=== PATIENT | male | born 1975 | race Caucasian/White ===

== ENCOUNTER 2023-07-18 09:40 | Emergency (ER) | payer OTHER, SELFPAY ==
[2023-07-18 09:46] VITALS: BP 131/82; PULSE 79; RESP 18; TEMP 36.8; O2SAT 100; BMI 25.9
--- NOTE | 2023-07-18 09:52 | ED_ITS ---
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
--- NOTE | 2023-07-18 09:57 | ED_ITS ---
HPI - Wound/Laceration General: Chief Complaint: Wound/Laceration Stated Complaint: face lac, hit head Time Seen by Provider: 07/18/23 09:48 Source: patient Mode of arrival: ambulatory Limitations: no limitations History of Present Illness: Patient is a 47-year-old male who presents to ED today with a main complaint of a laceration to his forehead. Patient states around 1 AM this morning he was chasing his dog that got out and accidentally ran into a barbed wire fence. Patient states he sustained lacerations to his extremities and face. He states he slipped and fell on the wet grass and has some mild neck and upper back pain that he feels most likely is just muscle strain. His last tetanus was approximately 3 years ago. He denies striking his head or LOC. Onset (ago): hour(s) Location: face, neck and back Place: home Patient tetanus UTD: Yes Context: accidental Associated symptoms: Reports no associated symptoms; Denies syncope Review of Systems Eyes: Denies: change in vision, blurry vision, photophobia, eye discharge, floaters or seeing flashes ENMT: Denies: throat pain, odynophagia, ear or mastoid pain, ear discharge, nasal discharge, epistaxis or sinus pain Card: Denies: chest pain, palpitations, lightheadedness, syncope or pre- syncope Resp: Denies: dyspnea or pain on inspiration GI: Denies: abdominal pain : Denies: flank pain or hematuria Musc: Reports: neck pain and back pain; Denies: extremity pain or joint pain Skin/Breast: Reports: other (forehead laceration) Neuro: Denies: headache(s), numbness in extremities, weakness in extremities, sensory changes or dizziness Physical Exam Const: COMMON NORMALS: no acute distress, average body habitus, patient oriented x3, no limitations, healthy appearing, alert and well nourished GENERAL APPEARANCE: cooperative ORIENTATION/CONSCIOUSNESS: Yes awake, Yes oriented to person, Yes oriented to place and Yes oriented to time HENMT: COMMON NORMALS: normocephalic, atraumatic, TM's normal bilaterally and Normal external nose present HEAD & SCALP: normal to inspection, normocephalic and atraumatic; no Espinoza's sign, no hematoma and no raccoon eyes FACE & SINUS: other (facial abrasions; flap laceration above L eyebrow) NOSE: Normal external nose present TYMPANIC MEMBRANE: TM's normal bilaterally MOUTH: other (no intraoral injuries noted) Eye: COMMON NORMALS: Equal, round and reactive pupils present and EOMs intact bilaterally GENERAL EYE: appearance normal, both eyes and all related structures and normal light reflex PUPIL: Yes Equal, round and reactive pupils present DIRECT OPHTHALMOSCOPY: Yes normal light reflex Neck/C-Spine: COMMON NORMALS: full ROM GENERAL: Yes normal visual inspection CERVICAL SPINE: Yes cervical ROM normal, Yes pain with cervical ROM, No Cervical spine tenderness, No step off deformity and Yes Paracervical muscle tenderness Chest: COMMONS NORMALS: normal inspection of the chest and normal palpation of entire chest wall Resp: COMMON NORMALS: normal respiratory effort and clear to auscultation bilaterally AUSCULTATION: clear to auscultation bilaterally Cardio: COMMON NORMALS: regular rate and regular rhythm RATE: regular rate RHYTHM: regular rhythm GI: COMMON NORMALS: Normal to inspection, nondistended, normoactive bowel sounds present, Soft to palpation, non-tender, No hepatosplenomegaly present and no masses INSPECTION: Yes normal to inspection and No abdominal wall ecchymos is AUSCULTATION: Yes normoactive bowel sounds PALPATION: Yes Soft to palpation and Yes No hepatosplenomegaly present Back/Pelvis: COMMON NORMALS: thoracic and lumbar spine normal to inspection and thoraco-lumbar ROM normal THORACIC SPINE/UPPER BACK: Yes thoracic ROM normal, Yes thoracic spinal tenderness (mid to upper T spine), Yes paraspinal muscle tenderness and No paraspinal muscle spasm LUMBAR SPINE/LOWER BACK: Yes normal to inspection, Yes lumbar ROM normal, No lumbar spinal tenderness, No paraspinal muscle tenderness and No paraspinal muscle spasm PELVIS: Yes buttocks normal SACROILIAC JOINTS: Yes SI joints normal SACRUM: no tenderness COCCYX: no tenderness Extremity: COMMON NORMALS: normal to inspection and full ROM NARRATIVE EXTREMITY EXAM: scattered minor abrasions anterior lower legs GENERAL: Yes normal exam except as noted Neuro: SARA COMA SCALE: document GCS findings [place] coma scale eye opening: Spontaneous [place] coma scale verbal response: Orientated Sara coma scale motor response: Obey commands [place] coma scale total score: 15 COMMON NORMALS: patient oriented x3, CN's II-XII intact bilaterally, moves all extremities, no focal motor deficits, no sensory deficits noted and gait normal SENSORIUM/ORIENTATION: Yes alert, Yes oriented to person, Yes oriented to place and Yes oriented to time SPEECH: speech normal GAIT: Yes Normal gait present Skin: COMMON NORMALS: no rashes or lesions noted GENERAL SKIN EXAM: no rashes or lesions noted TRAUMA: abrasion and laceration Procedures Laceration Laceration 1: Site: face Side (If applicable): left Size (cm): 1.5 Description: flap Depth: simple, single layer and involves muscle layer Local Anesthetic: lidocaine 1% and with epi Amount of anesthesia used (mL): 3.0 Pre-repair: wound explored and irrigated extensively Skin layer closed with: nylon Size (cm): 4-0 Number of sutures: 5 Technique: simple, interrupted Course Vital Signs: Vital signs: Vital Signs Temperature 98.3 F 07/18/23 09:46 Pulse Rate 73 07/18/23 10:31 Respiratory Rate 18 07/18/23 09:46 Blood Pressure 143/96 07/18/23 10:31 Pulse Oximetry 100 07/18/23 10:31 Oxygen Delivery Me thod Room Air 07/18/23 10:31 MDM - Wound/Laceration Medical Decision Making Wound to forehead was copiously irrigated and repaired as documented. Wound/infection precautions discussed. His tetanus is up-to-date. XRs showing a T5 compression fracture. He will follow-up with Dr. Jackson for this. Discussed restrictions at home. He will be provided pain medications. Return to ED precautions given. Lab Data Radiology Impressions Cervical Spine X-Ray 07/18/23 10:02 Impression: 1. Degenerative change at C5-C6 with accompanying disc narrowing. 2. Negative for cervical compression fracture. Thoracic Spine X-Ray 07/18/23 10:02 Impression: T5 compression fracture. All radiology interpretation(s) finalized by discharge Discharge Plan Discharge Patient Disposition: Home Clinical Impression: Forehead laceration, Compression fracture of T5 vertebra Condition: Stable Prescriptions: New hydrocodone-acetaminophen 5-325 mg tablet 1 tab PO Q6H PRN (Reason: pain) Qty: 14 0RF Discharge Orders: Discharge ED (Routine); Ordered 07/18/23 Ordered By: Hellen Trotter Referrals: Wilner Merritt MD [Primary Care Provider] - Patient Instructions: Fractures - Compression, Care For Your Stitches (ED), Laceration (DC), Vertebral Compression Fracture (ED), Opioid Safety, Pain Management Activity Restrictions/Additional Instructions: Keep wound/laceration clean with warm soap and water twice daily. Monitor for signs of infection such as redness, swelling, increased pain, or drainage. Please seek medical re-evaluation if these occur. If you received sutures today these will need to be removed (unless you were told by the provider that they are absorbable). The provider should have discussed with you the length of time until removal-7 DAYS. As we discussed I would like you to limit lifting to 15 pounds and avoid twisting/bending/turning as to not aggravate the compression fracture in your back. We will have you follow-up with her orthopedic spinal specialist, Dr. Jackson. You may use prescribed pain medication as needed for severe pain. 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
--- NOTE | 2023-07-18 10:02 | XR_ITS ---
WS: [id number] Cervical spine, 3 views, 07/18/2023 Clinical Data: fall Comparison: None. Findings: No compression fractures are seen. There is disc space narrowing at C5-C6 and C6-C7 with an terior osteophytes. There is no prevertebral soft tissue swelling. The odontoid is unremarkable. The soft tissues of the neck and the lung apices are normal. XR/XR cervical spine 3V* [id number] Impression: 1. Degenerative change at C5-C6 with accompanying disc narrowing. 2. Negative for cervical compression fracture.
--- NOTE | 2023-07-18 10:02 | XR_ITS ---
WS: [id number] Thoracic spine, 3 views, 07/18/2023 Clinical Data: fall Comparison: None. Findings: There is a compression fracture of the T5 vertebral body with loss of at least 50% of the anterior an d central vertebral body height. No retropulsion is seen. The disc heights are normal. The paravertebral regions are unremarkable. XR/XR thoracic spine 3V* [id number] Impression: T5 compression fracture.
[2023-07-18 10:31] VITALS: BP 143/96; PULSE 73; O2SAT 100
[2023-07-18 11:15] VITALS: BP 128/85; PULSE 78; O2SAT 100
--- NOTE | 2023-07-21 06:05 | DCPLANNER ---
Message sent to ortho for follow T5 COMPRESSION FX DR. GONSALVES
== END 2023-07-18 11:15 | disposition home or self-care (01) ==
PROVIDERS: Emergency Provider Physician Assistant; PCP Family Medicine
DX: S01.81XA Laceration without foreign body of other part of head, initial encounter (principal); S22.059A Unspecified fracture of T5-T6 vertebra, initial encounter for closed fracture; W01.0XXA Fall on same level from slipping, tripping and stumbling without subsequent striking against object, initial encounter
CPT/HCPCS: 72040; 72072; 99284

== ENCOUNTER → 2023-07-31 07:58 | Outpatient (BNVA) | payer OTHER, SELFPAY | PROVIDERS: PCP Family Medicine; Visit Provider Orthopaedic Surgery | DX: S22.050A Wedge compression fracture of T5-T6 vertebra, initial encounter for closed fracture (principal); W01.0XXA Fall on same level from slipping, tripping and stumbling without subsequent striking against object, initial encounter | CPT/HCPCS: 72072 ==

== ENCOUNTER 2023-07-31 10:59 | Outpatient (CLI) | payer OTHER, SELFPAY | END 2023-07-31 11:00 | disposition home or self-care (01) | LOC: SPT 11:00 | PROVIDERS: PCP Family Medicine; Visit Provider Orthopaedic Surgery | DX: Z46.89 Encounter for fitting and adjustment of other specified devices (principal); S22.050D Wedge compression fracture of T5-T6 vertebra, subsequent encounter for fracture with routine healing; X58.XXXD Exposure to other specified factors, subsequent encounter | CPT/HCPCS: 97760; L0456 ==

== ENCOUNTER 2023-08-05 14:25 | Outpatient (CLI) | payer OTHER, SELFPAY ==
--- NOTE | 2023-08-05 14:30 | MR_ITS ---
WS: [id number] MRI THORACIC SPINE WITHOUT CONTRAST TECHNIQUE: Sagittal T1, T2 and STIR imaging. Axial T2 imaging. Noncontrast imaging obtained. CLINICAL INFORMATION: thoracic fx COMPARISON: Radiograph 07/31/2023 FINDINGS: Moderate thoracic kyphosis in the upper thoracic spine. Mild disc bulge in the lower cervical spine a t C5-C6 and C6-C7 with slight contact of the cervical cord. Biconcave compression fracture T5 vertebr al body with fracture cleft visualized in the anterior superior endplate. Biconcave compression with loss of approximately 50% vertebral body height. No significant retropulsion. Edema compatible with a cute compression. In addition, mild acute compression of the superior endplates T3 and T4 with loss of approximately 10 to 20% vertebral body height. No retropulsion. Cord signal is normal. Moderate facet arthropathy lower thoracic spine. Adrenal glands are normal. Normal caliber thoracic a shana. Tiny central syrinx in the thoracic cord at T7-T10. MR/MR thoracic spin wo con* [id number] IMPRESSION: 1. Acute biconcave compression T5 vertebral body with loss of approximately 50 % vertebral body height and associated edema. Edema extends into the pedicles b ilaterally which appear intact. No retropulsion. 2. Mild acute compression of the superior endplates at T3 and T4 with minimal loss of vertebral body height. No retropulsion. 3. Tiny central syrinx in the thoracic cord at T7-T9. Cord signal is otherwise normal.
== END 2023-08-05 14:26 | disposition home or self-care (01) ==
LOC: RAD 14:26
PROVIDERS: PCP Family Medicine; Visit Provider Orthopaedic Surgery
DX: S22.050A Wedge compression fracture of T5-T6 vertebra, initial encounter for closed fracture (principal); M46.94 Unspecified inflammatory spondylopathy, thoracic region
CPT/HCPCS: 72146

== ENCOUNTER → 2023-08-28 13:54 | Outpatient (BNVA) | payer OTHER, SELFPAY | PROVIDERS: PCP Family Medicine; Visit Provider Orthopaedic Surgery | DX: M54.9 Dorsalgia, unspecified (principal) | CPT/HCPCS: 72072 ==

== ENCOUNTER 2024-06-24 21:06 | Emergency (ER) | payer OTHER, SELFPAY ==
[2024-06-24 21:10] VITALS: BP 125/88; PULSE 77; TEMP 37; O2SAT 99; BMI 25.4
--- NOTE | 2024-06-24 21:56 | PC.NURSE ---
Lac irrigated with NS flushesx 6 and gauze. Pt tolerated well.
[2024-06-24 22:16] VITALS: BP 127/87; PULSE 83; O2SAT 96
--- NOTE | 2024-06-24 22:48 | ED_ITS ---
HPI - Wound/Laceration General: Chief Complaint: Wound/Laceration Stated Complaint: busted lip Time Seen by Provider: 06/24/24 21:19 Source: patient Mode of arrival: ambulatory Limitations: no limitations History of Present Illness: Patient is a 48-year-old male who presents the emergency department for upper lip laceration just prior to arrival. He was working on his car, states he was struck by a wrench. Feels that his tooth went through his lip, laceration to the outside noted. Bleeding controlled on arrival, hematoma upper lip noted. Last vaccination was in the last 2 years in regards to tetanus. No other symptoms at this time. 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 #1 ea 07/31/23 cyclobenzaprine 10 mg tablet 10 mg PO TID 30 days #90 tabs 08/07/23 clindamycin HCl 300 mg capsule 300 mg PO BID 7 days #1 4 caps 06/24/24 Allergies Allergy/AdvReac Type Severity Reaction Status Date / Time No Known Allergies Allergy Verified 10/09/23 13:35 Review of Systems General: Reports: 10 or more systems reviewed and unremarkable except in HPI and below Const: Denies: fever(s) or chills Card: Denies: chest pain Resp: Denies: dyspnea GI: Denies: abdominal pain, nausea, vomiting or diarrhea Musc: Denies: extremity pain or joint pain Skin/Breast: Reports: new lesions (Lip laceration); Denies: rash, skin pain or skin tenderness Neuro: Denies: headache(s) PFS ED PFSH: Social History Smoking and tobacco/nicotine status: never used tobacco/nicotine Physical Exam Const: COMMON NORMALS: no acute distress, average body habitus, patient oriented x3, no limitations, healthy appearing, alert and well nourished HENMT: COMMON NORMALS: normocephalic and atraumatic HEAD & SCALP: normocephalic and atraumatic OTHER: Evaluation of the mucous pin brains of the upper lip shows abrasion, does not appear to be through and through laceration. There is a superficial laceration noted to the upper lip does involve the vermilion border, though is not easily approximated and is very superficial, approximately 0.5 cm. No active bleeding. Neck/C-Spine: COMMON NORMALS: full ROM, no lymphadenopathy, supple and no meningeal signs Resp: COMMON NORMALS: normal respiratory effort, No use of accessory muscles and clear to auscultation bilaterally AUSCULTATION: clear to auscultation bilaterally Cardio: COMMON NORMALS: regular rate and regular rhythm RATE: regular rate RHYTHM: regular rhythm Extremity: COMMON NORMALS: full ROM and capillary refill normal Neuro: COMMON NORMALS: patient oriented x3 SENSORIUM/ORIENTATION: Yes alert MENINGEAL SIGNS: Yes no meningeal signs Skin: COMMON NORMALS: no rashes or lesions noted and turgor normal GENERAL SKIN EXAM: no rashes or lesions noted and turgor normal Course Vital Signs: Vital signs: Vital Signs Temperature 98.6 F 06/24/24 21:10 Pulse Rate 83 06/24/24 22:16 Blood Pressure 127/87 06/24/24 22:16 Pulse Oximetry 96 06/24/24 22:16 Oxygen Delivery Me thod Room Air 06/24/24 21:10 MDM - Wound/Laceration Medical Decision Making This patient's lip laceration appeared to superficial and there was not easy approximation for sutures, was not a through and through laceration. With shared decision making, patient and I elected for conservative treatment of the wound at home, however will start on antibiotics prophylactically. His tetanus was up-to-date. Return precautions given. No radiology studies performed this visit Discharge Plan Discharge Patient Disposition: Home Clinical Impression: Laceration of lip Condition: Stable Prescriptions: New clindamycin HCl 300 mg capsule 300 mg PO BID 7 Days Qty: 14 0RF No Action (DME) KEI Hamilton See Rx Instructions .Route .MEDSUPPLY Qty: 1 0RF Rx Instructions: As directed cyclobenzaprine 10 mg tablet 10 mg PO TID 30 Days Qty: 90 0RF hydrocodone-acetaminophen 5-325 mg tablet 1 tab PO Q6H PRN (Reason: pain) Qty: 14 0RF Discharge Orders: Discharge ED (Routine); Ordered 06/24/24 Ordered By: Warren Parnell Referrals: Wilner Merritt MD [Primary Care Provider] - Patient Instructions: Facial Laceration (ED) Activity Restrictions/Additional Instructions: Take the antibiotics as prescribed. General wound care, keep the area clean and dry. May apply Steri-Strip for extra closure. Apply ice for the underlying hematoma. Ibuprofen/Tylenol for pain. Please return with any new or worsening. 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
== END 2024-06-24 22:18 | disposition home or self-care (01) ==
PROVIDERS: Emergency Provider Physician Assistant; PCP Family Medicine
DX: S01.511A Laceration without foreign body of lip, initial encounter (principal); W22.8XXA Striking against or struck by other objects, initial encounter
CPT/HCPCS: 99283

== ENCOUNTER 2024-10-25 18:58 | Emergency (ER) | payer OTHER, SELFPAY ==
[2024-10-25 19:00] VITALS: BP 132/74; PULSE 65; RESP 18; TEMP 36.6; O2SAT 96; BMI 269.0
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
[2024-10-25] MEDS: tetanus-dipt-pertussis 0.5 mL SDV IM (19:39)
[2024-10-25] MEDS: tetracaine 0.5% Op Soln 4 mL Btl 1 DROP EYE-BOTH (19:40)
[2024-10-25] MEDS: HYDROcodone-acetaminophen 5-325 mg Tablet 1 TAB PO (19:40)
[2024-10-25 20:36] VITALS: BP 104/79; PULSE 96; RESP 26; O2SAT 98
[2024-10-25 20:38] VITALS: RESP 18
[2024-10-25] MEDS: morphine 4 mg/mL SDV 1 mL 8 MG IM (20:38)
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
[2024-10-25] MEDS: ondansetron hcl ODT 4 mg Tab PO (20:40)
[2024-10-25] MEDS: lidocaine-epi 1% 20 mL INJ INJECTION (20:45)
[2024-10-25 21:31] LABS: Hematocrit 40.4 % (37-53); Hemoglobin 13.20 g/dL (11.27-16.99); Mean Corpuscular HGB Conc 32.7 g/dL (30-55); Mean Corpuscular Hemoglobin 29.3 pg (27-33); Mean Corpuscular Volume 89.6 fl (82-101); Nucleated Red Blood Cells % 0 %; Platelet Count 282 10^3/cmm (157-399); Red Blood Count 4.51 10^6/uL (3.85-5.65); White Blood Count 9.91 10^3/uL (3.29-11.43)
[2024-10-25 21:53] LABS: Alanine Aminotransferase 28 U/L (0-41); Albumin Level 4.2 g/dL (3.5-5.2); Alkaline Phosphatase 111 U/L (40-130); Anion Gap 14.5 (5-19); Aspartate Amino Transferase 30 U/L (0-40); Blood Urea Nitrogen 11 mg/dL (6-20); Calcium 8.9 mg/dL (8.5-10.5); Carbon Dioxide 25 mmol/L (22-29); Chloride 104 mmol/L (98-107); Creatinine Clr Calc Pharmacy 164.6172; Globulin 3.5 g/dL (1.3-4.6); Glucose 122 mg/dL (65-115); Osmolality Calculated 289 mOsm/kg (285-295); Potassium 4.5 mmol/L (3.5-5.1); Sodium 139 mmol/L (136-145); Total Protein 7.7 g/dL (6.6-8.7)
[2024-10-25 22:00] VITALS: BP 117/85; PULSE 98; O2SAT 92
[2024-10-25] MEDS: erythromycin Op Oint 1 gm 1 APPLIC EYE-BOTH (22:31)
[2024-10-25 23:11] VITALS: BP 117/85; PULSE 86; O2SAT 93
--- NOTE | 2024-10-26 09:09 | DCPLANNER ---
sent referral to shayla ferguson
== END 2024-10-25 23:00 | disposition home or self-care (01) ==
PROVIDERS: Emergency Provider Physician Assistant; PCP Family Medicine
DX: S05.02XA Injury of conjunctiva and corneal abrasion without foreign body, left eye, initial encounter (principal); S05.01XA Injury of conjunctiva and corneal abrasion without foreign body, right eye, initial encounter; S02.841A Fracture of lateral orbital wall, right side, initial encounter for closed fracture; S21.119A Laceration without foreign body of unspecified front wall of thorax without penetration into thoracic cavity, initial encounter; W40.8XXA Explosion of other specified explosive materials, initial encounter
CPT/HCPCS: 12002; 36415; 70450; 70486; 71045; 80053; 85025; 90471; 90715; 96372; 99284; J2270; J9999; Q0162